=== PATIENT | male | born 2000 | race Caucasian/White ===

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

== ENCOUNTER → 2022-08-26 00:41 | Outpatient (CLI) | payer BC, SELFPAY ==
--- NOTE | 2022-08-26 | DI.RAD_ITS ---
Exam(s) XR KNEE RT 3V AP,LAT,DAGMAR EXAM: XR KNEE RT 3V AP,LAT,DAGMAR CLINICAL HISTORY: RT KNEE PAIN, M25.561. TECHNIQUE: 2D digital imaging was performed of the right knee. Three views obtained. AP, lateral an d PA tunnel views were obtained. COMPARISON: No exams were available for comparison FINDINGS: BONES: No acute fracture is present. No bony destructive lesion is seen. JOINTS: The knee is normally aligned. No joint effusion is seen. SOFT TISSUE: Normal. IMPRESSION: Unremarkable radiographs of the right knee. DATA REPOSITORY: RADIATION DOSE DELIVERED:
== END ==
PROVIDERS: PCP Internal Medicine; Visit Provider Nurse Practitioner Family
DX: M25.561 Pain in right knee (principal)
CPT/HCPCS: 73562

== ENCOUNTER → 2022-09-30 01:18 | Outpatient (CLI) | payer BC, SELFPAY ==
--- NOTE | 2022-09-30 06:45 | DI.MRI_ITS ---
Exam(s) MR LOWER JOINT RT WO EXAM: MR LOWER JOINT RT WO CLINICAL HISTORY: traumatic internal derangement,tear lateral meniscus,chondromalacia patella. TECHNIQUE: Multiplanar multisequence MRI was performed. COMPARISON: CR XR KNEE RT 3V AP,LAT,DAGMAR from 08/26/2022 FINDINGS: BONES: There is no fracture or contusion pattern. JOINTS: A minimal joint effusion is present. Articular cartilage: Patellofemoral joint: Articular cartilage is unremarkable. Medial femoral tibial joint: Articular cartilage is unremarkable. Lateral femoral tibial joint: Articular cartilage is unremarkable. TENDONS: Extensor mechanism: Unremarkable. Medial retinaculum: Unremarkable. Lateral retinaculum: Unremarkable. Popliteus: Unremarkable. MUSCLES: Unremarkable. MENISCI: The medial meniscus shows horizontally oriented linear signal in the posterior horn and body the lateral meniscus is unremarkable. SOFT TISSUES: Unremarkable. LIGAMENTS: Anterior Cruciate: Unremarkable. Posterior Cruciate: Unremarkable. Medial Collateral:Unremarkable. Lateral Collateral: Unremarkable. IMPRESSION: Horizontal tear of the posterior horn and body of the medial meniscus. DATA REPOSITORY:
== END ==
PROVIDERS: PCP Internal Medicine; Visit Provider Student in an Organized Health Care Education/Training Program
DX: S83.241A Other tear of medial meniscus, current injury, right knee, initial encounter (principal); X58.XXXA Exposure to other specified factors, initial encounter
CPT/HCPCS: 73721

== ENCOUNTER 2022-11-11 08:59 | Day surgery (SDC) | payer BC, SELFPAY ==
[2022-11-11] VITALS (9 sets, daily range): BP systolic 92–129; BP diastolic 40–86; PULSE 52–78; RESP 13–72; TEMP 36.3–36.9; O2SAT 95–99; BMI 30.2
--- NOTE | 2022-11-11 09:08 | W.ANESPRE ---
General Info Date of Service Date Performed: 11/11/22 Height: 6 ft 2 in Weight: 106.594 kg Body Mass Index (BMI): 30.2 Surgical Procedure: Operation Date: 11/11/22 11:10 Proposed Procedure Side Surgeon p Knee Arthroscopy w/Medial Meniscus Repair/Bone Marrow Stimulation Right Abhijit Serrano MD Meds Allergies and Home Medications Allergies Allergy/AdvReac Type Severity Reaction Status Date / Time amoxicillin [Amoxicillin] Allergy Intermediate Full Body Unverified 11/11/22 09:21 Rash Penicillins Allergy Intermediate Full body Unverified 11/11/22 09:21 rash Home Medication Medication Instructions Recorded cetirizine 10 mg capsule (Zyrtec) 10 mg PO DAILY PRN #30 tabs 04/09/13 Current Visit Medications: Current Medications Generic Name Dose Route Start Last Admin Trade Name Freq PRN Reason Stop Dose Admin Ringer's Solution 1,000 mls @ 30 mls/hr 11/11/22 06:00 IV 11/11/22 18:00 INFUSION CHRISTIE Cefazolin Sodium/Dextrose 2 gm in 50 mls @ 100 mls/hr 11/11/22 06:00 Ancef Duplex IVPB 11/11/22 23:59 PREOP CHRISTIE IV Miscellaneous Supplies 1 each 11/11/22 06:00 Iv Access IV 11/11/22 23:59 DIRECTED CHRISTIE Oxycodone HCl 0 mg 11/11/22 07:20 Oxycodone 5 Mg Tab PO Q3H PRN PRN Pain Sodium Chloride 0 ml 11/11/22 06:00 Normal Saline Flush 10 Ml Syr IV 11/11/22 23:59 PRN PRN Sodium Chloride 0 ml 11/11/22 06:00 Normal Saline 10 Ml Vial IJ 11/11/22 23:59 DIRECTED PRN Sterile Water 0 ml 11/11/22 06:00 Water,Injection,Sterile 10 Ml Vial IJ 11/11/22 23:59 DIRECTED PRN PFSH Active Problems Active Problems: Problem Status Onset Code Asthma J45.909 Costochondritis M94.0 Counseling on substance use and abuse Z71.89 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 Dysthymia IVONNE (generalized anxiety disorder) Intermittent palpitations Per. pt. states he doesn't have this anymore it was 1.5 years ago. Tobacco Smoking/Tobacco Use Status: Current every day Tobacco Type: e-cigarettes Alcohol Alcohol Intake: never Substance Use Substance use: Never Substance use type: does not use Vital Signs and Lab Results Vital Signs Comment Vital Signs Comment:: Temp Pulse Resp BP Pulse Ox 36.9 C 78 18 129/86 99 11/11/22 09:16 11/11/22 09:16 11/11/22 09:16 11/11/22 09:16 11/11/22 09:16 Lab Results Blood Type / Crossmatch: No Data to Display Complete Blood Count: No Data to Display Complete Metabolic Panel: No Data to Display Liver Function Panel: No Data to Display Coagulation Panel: No Data to Display Cardiac Panel: No Data to Display Arterial Blood Gas: No Data to Display Venous Blood Gas: No Data to Display Pancreas Panel: No Data to Display Thyroid Panel: No Data to Display Infectious Disease: No Data to Display Blood Cultures: No Data to Display Toxicology Panel: No Data to Display Imaging and Studies Imaging and Studies Study information below may be from another EMR and interpreted by another provider. Please see original notes in EMR for more complete details. Pulmonary Function Summary: 12/07/2017: DATE OF SERVICE December 07, 2017 REQUESTING PROVIDER Jamshid Colon M.D. INTERPRETATION OF STUDY Spirometry shows no evidence of obstructive airways disease. No bronchodilator response. LUNG VOLUMES - Lung volumes show no evidence of restriction. DIFFUSION CAPACITY- Markedly elevated even when corrected to alveolar volume. AIRWAY RESISTANCE - Normal. IMPRESSION Isolated markedly elevated diffusion capacity. This can signal early developing asthma. If clinically suspected proceeding with methacholine challenge testing may prove to be useful. Anesthesia Assessment and Plan Anesthesia History Personal History: No History of Anesthesia Complications Family History: No Family History of Anesthesia Complications Exercise Tolerance Exercise Tolerance: Metabolic Equivalents>4 Pertinent Negatives Pertinent Negatives: No Symptoms of GERD, No Major Cardiovascular Symptoms or Complaints and No Major Pulmonary Symptoms or Complaints Cardiac & Pulmonary Exam Cardiac Exam: Normal S1/S2 Heart Sounds Pulmonary Exam: Clear Bilateral Breath Sounds Implantable Cardiac Device Does patient have a Pacemaker or an ICD?: No Airway Exam Known Difficult Airway: No Mallampati Class: 2 Mouth Opening: Normal (> 3cm) Thyromental Distance: Greater than 3 cm Neck Range of Motion: Full ROM Neck Circumference: Normal (Mendez) Teeth Condition: Normal Dentition ASA Classification ASA Score: ASA 2 Emergency Case?: No NPO Status NPO Status: NPO Clears >2 hours, Solids >8 hours Anesthesia Plan Resuscitation Status: Full Code Anesthesia Technique: General Anesthesia Airway Planned: LMA Pain Management: Surgeon and patient request nerve block (Rescue) Monitors Used: Standard Monitors Preoperative Comments:: Patient wishes to have opioid-free anesthesia and has consented for rescue adductor canal block if necessary following surgery.
[2022-11-11] MEDS: Lactated Ringers 1,000 ML 30 ML IV (09:37)
[2022-11-11] MEDS: ceFAZolin 2 GM/50 ML BAG IVPB (12:27)
[2022-11-11] MEDS: MORPHine 4 MG/ML SYR (12:52)
[2022-11-11] MEDS: EPINEPHrine 30 MG/30 ML VIAL (12:52)
[2022-11-11] MEDS: Bupivacaine 0.5% Pres-Free W/EPI 30 ML VIAL (12:53)
--- NOTE | 2022-11-11 13:42 | W.PM.DSUDISC ---
Date of service: 11/11/22 Time of Service: 15:00 Discharge Plan Disposition Patient Disposition: Home Discharge Details Attending Provider: Abhijit Serrano Primary Care Provider: Jamshid Colon Home Meds and New Rx's Prescriptions: New naproxen 250 mg tablet 250 - 500 mg PO BID PRNQty: 40 0RF Rx Instructions: take with a meal aspirin 81 mg tablet,delayed release (DR/EC) 81 mg PO DAILY 14 Days Qty: 14 0RF Continued Zyrtec 10 MG capsule 10 mg PO DAILY PRNQty: 30 Discontinued naproxen sodium [Aleve] 220 mg Tablet 442 mg PO PRN PRN Discharge Instructions Additional Instructions: Surgery: Right knee arthroscopy with medial meniscus repair (trephination for incomplete tear) Activity: Use crutches and weightbearing with the knee in full extension-only for 6 weeks. Knee range of motion 0-90 degrees while seated. Avoid weighted flexion for 8 weeks. Spin/bike after 8 weeks. Closed chain strengthening after 10 weeks. A physical therapy prescription will be sent electronically to start in about 3 weeks. Prescriptions: Aspirin 81 mg take 1 daily to prevent a blood clot for 14 days Naproxen 250 mg take 1-2 every 12 hours with a meal as needed for moderate pain You may use [id number] Tylenol (acetaminophen) as needed for mild pain. These pain medications may be taken all at once or in different combinations as needed. Also, recommend Colace (docusate) as a stool softener as surgery and pain medicine cause constipation. You may try uxvo-wdx-xupetyp diphenhydramine (Benadryl) 25-50 mg nightly as a sleep aid Dressings: Leave dressing in place for 3 days. May then remove and leave open to air or cover incisions with Band-Aids. May shower after 5 days. Follow-up: 10-[address] Serrano You may take off the leg compression stockings this evening at home. You may also leave them on a few days longer if you have a history of leg swelling or edema. Let us know right away if you develop any redness, drainage, fevers, chest pain, or trouble breathing. Do not drink alcohol or drive for at least 24 hours after anesthesia. Please call the office during business hours with any questions or concerns. Discharge Orders Discharge Orders: Discharge Order (Routine); Ordered 11/11/22 Ordered By: Abhijit Serrano DS: Diagnosis Discharge Diagnosis (1) Acute medial meniscus tear of right knee: Status: Acute
--- NOTE | 2022-11-11 13:48 | ROE_ITS ---
Date of service: 11/11/22 Time of Service: 11:00 Operative Note Operative Note DATE OF PROCEDURE: 11/11/22 PRE-OP DIAGNOSIS: Right knee 1. Medial meniscus tear 2. Chondromalacia patella POST-OP DIAGNOSIS: same PROCEDURE: Right knee 1. Medial meniscus repair, CPT #40486 SURGEON: Abhijit Serrano SPRING SETTER: Jeannette Flores ANESTHESIA TYPE: Local By Surgeon and General LMA/ETT Refer to Anesthesia Record PATHOLOGY: none sent TOURNIQUET TIME: 0 Patient was transported to: PACU Patient's condition: stable Indications: Please see complete medical record for details. Findings: Exam under anesthesia: Full range of motion, stable Arthroscopic findings: Mild patellofemoral synovitis and lateral superior trochlear cartilage grade 1-2 softening fibrillations. Intact lateral meniscus and lateral compartment. Intact ACL PCL. Intact medial compartment cartilage. Completely visibly intact medial meniscus. Stable root. Intact without visible tear superior and inferior aspects. Unable to displace into the joint. Intact peripheral capsular attachment. No signs of meniscus degeneration. Procedure Description: In the operating room, general anesthesia was induced. The patient was positioned supine on the operating room table. All bony prominences were well- padded. Preoperative antibiotics were administered. The knee was prepped and draped in the usual sterile fashion. The correct patient, procedure, and side of the procedure were all verified prior to incision. Exam under anesthesia was performed. 10 cc of 0.5% bupivacaine containing epinephrine was infiltrated about the planned anteromedial and anterolateral knee arthroscopy portals. The portals were established and a complete diagnostic arthroscopy was performed with relevant findings detailed above. The mechanical shaver was used to remove a small amount of inflamed synovium from the anterior and patellofemoral compartments. The medial meniscus was thoroughly inspected. The posterior horn and junction with meniscal body was completely visibly intact. There is no degenerative meniscal tissue. The probe did not reveal any tears. The peripheral capsular attachment was intact without any displacement into the compartment. Root was intact. The arthroscope was directed into the posterior medial compartment through the notch and there was no abnormalities here. The remainder of the meniscal body anterior horn were intact. Given the clearly visible horizontal meniscus tear on MRI, which correlated with medial compartment tenderness, decision was made to proceed with trephination type repair for a stable, incomplete meniscus tear. An 18-gauge needle was directed into the joint about the posterior medial knee, and redirected through the meniscocapsular red zone and red-white zone of the central meniscus through multiple different punctures through the capsule and the meniscus taking care to redirect with the probe and careful visualization through the central core of the meniscus and avoid penetrating the white zone tissue. No tear was exposed during this trephination. The needle was kept beneath the skin and redirected subcutaneously to minimize introduction of skin contamination. The tear did not need any additional repair. Decision was also made to omit any bone marrow stimulation given the local stimulation done with this trephination technique. Under direct arthroscopic visualization an 18-gauge needle was passed into the knee from superolateral into the suprapatellar pouch. The knee was copiously irrigated with arthroscopic fluid until there was a clear effluent before being drained of all fluid. The anteromedial and anterolateral portals were closed in 3-0 Monocryl in a buried interrupted fashion. 20 cc of 0.5% bupivacaine with epinephrine containing 4 mg of morphine was infiltrated into the knee through the previously placed needle. Mastisol, Steri-Strips, and 4 x 4 gauze were applied over the incisions followed by sterile soft roll. The knee was then wrapped gently with an DANIEL comressive bandage. The patient awoke from anesthesia without complication and was transferred to the recovery room in a stable condition.
--- NOTE | 2022-11-11 15:30 | W.ANESPOSTOP ---
Postoperative Evaluation Date, Time and Location Date Performed: 11/11/22 Time Performed: 15:30 Patient Location: Day Surgery Unit Vital Signs Most Recent Imported Vital Signs: Most Recent Vital Signs Temp Pulse Resp BP Pulse Ox 36.4 C L 52 L 16 127/66 98 11/11/22 15:07 11/11/22 15:07 11/11/22 15:07 11/11/22 15:07 11/11/22 15:07 Pain Score Most Recent Pain Score: Most Recent Pain Score Pain Level 4 11/11/22 15:07 Assessment Mental Status: Awake (Alert & Oriented to Patient Baseline) Airway and Respiratory Function: Patent airway with normal (patient baseline) respiratory exam Cardiovascular Function: Hemodynamically Stable Hydration Status: Adequately Hydrated Nausea & Vomiting: No Nausea or Vomiting Pain: Pain is tolerable per patient Peripheral Nerve Block: Patient did not receive a nerve block
== END 2022-11-11 15:40 | disposition home or self-care (01) ==
PROVIDERS: PCP Internal Medicine; Visit Provider Student in an Organized Health Care Education/Training Program
PROC: (CPT 29870; principal; 2022-11-11 11:00)
DX: S83.241A Other tear of medial meniscus, current injury, right knee, initial encounter (principal); M22.41 Chondromalacia patellae, right knee; X58.XXXA Exposure to other specified factors, initial encounter
CPT/HCPCS: 29882; J0131; J0690; J1100; J1885; J2250; J2270; J2405; J2704

== ENCOUNTER 2024-11-04 17:29 | Emergency (ER) | payer BC, SELFPAY ==
[2024-11-04] VITALS (11 sets, daily range): BP systolic 137–150; BP diastolic 67–103; PULSE 97–113; RESP 16; TEMP 38.1; O2SAT 84–98
--- NOTE | 2024-11-04 17:46 | W.ED.GENAD ---
Discharge Plan Disposition Patient Disposition: Home Condition: Good Discharge Details Clinical Impression: Viral gastroenteritis Primary Care Provider: Jamshid Colon ED Provider: Arleen Cantor Home Meds and New Rx's Prescriptions: New Ondansetron Odt, 3 Tabs/Btl [Zofran Odt, 3 Tabs/Btl] 4 mg PO DISPENSE Qty: 0 0RF No Action Zyrtec 10 MG capsule 10 mg PO DAILY PRNQty: 30 naproxen 250 mg tablet 250 - 500 mg PO BID PRNQty: 40 0RF Rx Instructions: take with a meal Discharge Instructions Instructions: Viral gastroenteritis in adults Additional Instructions: Please stay well-hydrated, drinking plenty of electrolyte rich fluids throughout the day. Advance diet slowly as tolerated, starting with chicken noodle soup, then adding in applesauce, rice, toast. Avoid spicy/greasy/fried foods. You may use Tylenol and naproxen as needed for body aches/fever. Please stay home from work and isolate from others while you have a fever, as viral illnesses are very easy to spread to others. Wash hands well throughout the day, especially after using the bathroom. You are being provided a small number of Zofran tablets to use for severe nausea/vomiting only. Return to emergency care if you develop new/concerning symptoms such as blood in your vomit, episodes of severe dizziness/passing out, new abdominal pain, or if you are very worried and need to be rechecked again immediately. Referrals: Jamshid Colon MD [Primary Care Provider] - HPI General Date/Time Provider Initiated Documentation: 11/04/24 17:45. HPI Narrative: Abhijit is a 24year old male who presents to the emergency department today for evaluation of fever up to 101, body aches, congestion, sore throat, nausea/vomiting/diarrhea, and fatigue since 730 this morning. Reports he was feeling fine yesterday, ate [employer] prior to going home to bed. Says he has been unable to hold down any fluids. Denies chest pain or wheezing, though he does feel like he has some chest tightness when taking very deep breaths. No blood in stool or vomit. Denies abdominal pains. No known recent ill contacts with similar symptoms. Denies history of lung disease, heart disease, diabetes, or immunodeficiency. Patient denies alcohol use, drug use, or marijuana use. Does vape. Says that this feels similar to when he had COVID in the past. Past medical history is significant for alpha 1 antitrypsin deficiency. He has not taken any medications prior to arrival. Physical exam remarkable for warm skin. Moist mucous membranes. No trismus or cervical/submandibular lymphadenopathy. Easy work of breathing, lung sounds clear bilaterally. Normal heart sounds, tachycardia noted. Abdomen is soft, nondistended, nontender to palpation. History and presentation consistent with gastroenteritis. No red flags concerning for acute dehydration, electrolyte imbalance, SHELLI based on timeline and well-appearing patient.. No blood work or IV medications indicated at this time. Independently interpreted the following tests: COVID/flu negative While in the emergency department, Abhijit received ODT Zofran and Tylenol. He reports feeling significantly better, has been able to drink 2 cups of water and crackers without difficulty. Tachycardia improved. Overall workup today very reassuring. Will provide a limited number of Zofran for at home use. Reviewed discharge instructions with patient, including symptomatic management, rehydration at home, and red flags indicating need for return to emergency care Related Data Home Medications ?Medication ?Instructions ?Recorded ?Confirmed cetirizine 10 mg capsule (Zyrtec) 10 mg PO DAILY PRN #30 tabs 04/09/13 11/04/24 naproxen 250 mg tablet 250 - 500 mg (1 - 2 x 250 mg) PO 11/11/22 11/04/24 BID PRN #40 tabs Ondansetron ODT, 3 tabs/btl 4 mg PO DISPENSE ##0 11/04/24 [Zofran ODT, 3 tabs/btl] Previous Rx's ?Medication ?Instructions ?Recorded naproxen 250 mg tablet 250 - 500 mg (1 - 2 x 250 mg) PO 11/11/22 BID PRN #40 tabs Ondansetron ODT, 3 tabs/btl 4 mg PO DISPENSE ##0 11/04/24 [Zofran ODT, 3 tabs/btl] Allergies Allergy/AdvReac Type Severity Reaction Status Date / Time amoxicillin (Amoxicillin) Allergy Intermediate Full Body Unverified 01/10/23 10:13 Rash Penicillins Allergy Intermediate Full body Unverified 01/10/23 10:13 rash General Stated Complaint: Nausea/Vomit/Diar MANISH: 3 Review of Systems Narrative: see HPI Exam Const General: cooperative, healthy appearing, comfortable, no acute distress, well developed, not ill appearing and well hydrated Nutritional Appearance: average body habitus and well nourished Orientation: alert and oriented x[facility] General nose exam: external nose normal Face and sinus: normal facial exam Mouth: moist mucous membranes Throat: posterior oropharynx normal Neck Neck: normal visual inspection, full ROM and no lymphadenopathy Resp Effort & Inspection: normal respiratory effort and able to speak in complete sentences Auscultation: clear to auscultation bilaterally Cardio Rate: tachycardic Rhythm: regular rhythm GI Inspection: normal to inspection Palpation: soft, not firm, no guarding, not rigid and nontender Skin General skin exam: no rashes or lesions noted Course Vital Signs Vital signs: Vital Signs Temperature 38.1 C H 11/04/24 17:32 Pulse 113 H 11/04/24 17:32 Respiratory Rate 16 11/04/24 17:32 Blood Pressure 137/103 H 11/04/24 17:32 Pulse Oximetry 95 11/04/24 17:32 Temperature 38.1 C H 11/04/24 17:32 Temperature Source Temporal Artery Scan 11/04/24 17:32 Pulse 113 H 11/04/24 17:32 Respiratory Rate 16 11/04/24 17:32 Blood Pressure 137/103 H 11/04/24 17:32 Blood Pressure Position Sitting 11/04/24 17:32 Pulse Oximetry 98 11/04/24 17:40 Oxygen Delivery Method Room Air 11/04/24 17:40 Oxygen Flow Rate 0 11/04/24 17:32 Pain Level 8 11/04/24 17:32 Medical Decision Making Quality:SDOH Health Related Social Needs: No Data to Display PFSH All Active Problems (Updated 11/04/24 @ 18:51 by Arleen Mayo) Viral gastroenteritis (Acute) Asthma (Chronic) Costochondritis (Acute) Counseling on substance use and abuse (Acute) Acute medial meniscus tear of right knee (Acute 08/18/22) Medical History (Updated 11/04/24 @ 18:51 by Arleen Mayo) 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 Intermittent palpitations Per. pt. states he doesn't have this anymore it was 1.5 years ago. IVONNE (generalized anxiety disorder) Family History Other Diabetes mat side Mental disorder MGM- anxiety and panic attacks Social History Smoking/Tobacco Use Status: Current every day Tobacco Type: e-cigarettes Smoking risk assessment performed?: Yes Alcohol Intake: never Drug use: Never Substance use type: does not use Housing: house Current gender identity: male Do you feel safe at home: Yes Do you feel safe in your relationship?: Yes
[2024-11-04] MEDS: Ondansetron O.D.T. 4 MG TABEF PO (17:57)
[2024-11-04] MEDS: Acetaminophen 325 MG TAB 650 MG PO (17:57)
[2024-11-04] MEDS: Ondansetron O.D.T. 4 MG TABEF, 3 TABS/BTL PO (18:57)
== END 2024-11-04 18:58 | disposition home or self-care (01) ==
LOC: ER 19:00
PROVIDERS: Emergency Provider Nurse Practitioner Family; PCP Internal Medicine
DX: R11.2 Nausea with vomiting, unspecified (principal); R19.7 Diarrhea, unspecified; A08.4 Viral intestinal infection, unspecified; R50.9 Fever, unspecified; F17.290 Nicotine dependence, other tobacco product, uncomplicated
CPT/HCPCS: 99283